=== PATIENT | male | born 1940 ===

== ENCOUNTER → 2017-01-11 | Outpatient (CLI) | payer MEDICARE, OTHER ==
[~2017-01-11] MED LIST: APRESOLINE10 MG PO; AVODART0.5 MG PO; BAYER CHILD81 MG PO; BENICAR HCT 401 EAC1 PO; CATAPRES0.1 MG PO; CELLCEPT500 MG PO; COLACE100 MG PO; COUMADIN **IA10 MG; COUMADIN10 MG; CRESTOR40 MG PO; FENOFIBRATE134 MG PO; FLOMAX0.4 MG PO; IMDUR60 MG PO; LANTUS (IN100 UNIT/M SUB-Q; LEVOTHYROXINE50 MCG PO; LOPRESSOR100 MG PO; LOPRESSOR50 M1 PO; LOPRESSOR50 MG PO; LOVENOX 3030 MG/0.3 SUB-Q; MIDAMOR5 MG; MYSOLINE50 MG PO; NEXIUM40 MG PO; NITROSTAT0.4 MG SL; NORVASC5 MG PO; NOVOLOG100 UNIT/M SUB-Q; PERCOCET 5-3251 EACH PO; PLAVIX75 MG PO; SYNTHROID25 MCG PO; SYNTHROID50 MCG PO; TRICOR145 MG PO; XANAX0.25 MG PO; ZYLOPRIM300 MG PO
== END | disposition disaster alternative care site (69) ==
LOC: LGSMG 14:28
DX: I10 Essential (primary) hypertension (principal)

== ENCOUNTER → 2017-03-07 | Outpatient (CLI) | payer MEDICARE, OTHER | LOC: LGSMG 09:21 | DX: R80.9 Proteinuria, unspecified (principal) ==